=== PATIENT | female | born 1965 | race Caucasian/White ===

== ENCOUNTER 2017-07-29 23:09 | Inpatient (IN) ==
--- OUTSIDE RECORDS SUMMARY | 2017-07-29 23:33 | External Medical Summary ---
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 Active Problem Hyperlipidemia, unspecified E78.5 Active Problem Esophageal reflux 530.81 Active Problem Chronic obstructive pulmonary J44.9 Active disease, unspecified Problem Diarrhea 787.91 Active Problem Dysphagia, pharyngeal phase 787.23 Active Problem Tobacco use disorder 305.1 Active Problem Abdominal pain, unspecified site 789.00 Active Medications Medication Code System Code Instructions Start Date End Date Status Dosage Advair A [facility] [address] 230-21 MCG/ACT May 12, 2 puffs -00 Inhalation Twice a 2015 day Results No Known Results Summary Purpose eClinicalWorks Submission
--- OUTSIDE RECORDS SUMMARY | 2017-07-29 23:33 | External Medical Summary ---
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 Active Problem Tobacco use disorder 305.1 Active Problem Abdominal pain, unspecified site 789.00 Active Problem Esophageal reflux 530.81 Active Problem COPD 496 Active Problem Hormone replacement therapy V07.4 Active (postmenopausal) Problem Diarrhea 787.91 Active Problem Dysphagia, pharyngeal phase 787.23 Active Medications Medication Code System Code Instructions Start End Date Status [place] [address] 500-50 MCG/DOSE Jul 02, 1 puff 7-00 Inhalation Twice 2012 [place] [address] 325 MG Orally 1 to 2 6-60 every 6 hrs for tablets as pain needed Lyrica NDC [address]-418 150 MG Orally Dec 24, 1 capsule 6-41 Twice a day 2014 [place] [address] 108 (90 Base) February 18, 2 puffs as 1-85 MCG/ACT 2014 needed Inhalation every 4 [place] [address] 20 MG Orally Jul 28, 2 tablets 45 Once a day 2014 Procedures Procedure Coding System Code Date COMPLETE CBC W/AUTO DIFF WBC CPT-4 65077 Sep 13, 2015 COMPREHENSIVE METABOLIC PANEL CPT-4 81762 Sep 13, 2015 URINALYSIS, IN HOUSE CPT-4 42142 Sep 13, 2015 LIPID PANEL CPT-4 62994 Sep 13, 2015 SED RATE CPT-4 83329 Sep 13, 2015 TSH CPT-4 97041 Sep 13, 2015 Results Name Result Date Reference Range Unit Abnormality Flag In House Urinalysis, automated CBC With Platelet and Differential Summary Purpose eClinicalWorks Submission
--- OUTSIDE RECORDS SUMMARY | 2017-07-29 23:33 | External Medical Summary ---
:1965 Author Organization eClinicalWorks Care Team Providers Name Role Foreign Kilpatrick Provider Role Unavailable Allergies No Known Allergies Problems Problem Type Condition ICD-9 Code Onset Dates Condition Status Problem Diarrhea 787.91 Active Problem Dysphagia, pharyngeal phase 787.23 Active Problem Abdominal pain, unspecified site 789.00 Active Problem COPD 496 Active Problem Psychogenic pain, site 307.80 Active unspecified Problem COPD 496 Active Problem Hormone replacement therapy V07.4 Active (postmenopausal) Medications No Known Medications Results No Known Results Summary Purpose eClinicalWorks Submission
--- OUTSIDE RECORDS SUMMARY | 2017-07-29 23:34 | External Medical Summary ---
[...] Abdominal pain, unspecified site 789.00 Active Medications No Known Medications Results No Known Results Summary Purpose eClinicalWorks Submission
--- OUTSIDE RECORDS SUMMARY | 2017-07-29 23:34 | External Medical Summary ---
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
--- OUTSIDE RECORDS SUMMARY | 2017-07-29 23:34 | External Medical Summary ---
:1965 Author Organization eClinicalWorks Care Team Providers Name Role Foreign Kilpatrick Provider Role Unavailable Allergies, Adverse Reactions, Alerts Substance Reaction Event Type Demerol vomiting Drug Allergy Cipro anaphylaxis Drug Allergy Problems Problem Type Condition ICD-9 Code Onset Dates Condition Status Assessment COPD 496 Active Assessment Psychogenic pain, site 307.80 Active unspecified Problem Diarrhea 787.91 Active Problem Dysphagia, pharyngeal phase 787.23 Active Problem Abdominal pain, unspecified site 789.00 Active Problem COPD 496 Active Problem Psychogenic pain, site 307.80 Active unspecified Problem COPD 496 Active Problem Hormone replacement therapy V07.4 Active (postmenopausal) Medications Medication Code System Code Instructions Start End Date Status Dosage Date Lyrica [facility] [address] 150 MG Orally Dec 24, 1 capsule 6-41 Twice a day 2013 Advair Diskus [facility] [address] 500-50 MCG/DOSE Jul 02, 1 puff 7-00 Inhalation Twice 2012 [place] [address] 325 MG Orally 1 tablet as 6-60 every 6 hrs needed ProAir HFA [facility] [address]79[address] 108 (90 Base) February 18, 2 puffs as 1-85 MCG/ACT 2014 needed Inhalation every 4 hrs Procedures Procedure Coding System Code Date OFFICE VISIT, EST-LOW COMPLEXITY (15 MIN.) CPT-4 85157 Dec 16, 2014 Vital Signs Date/Time: Dec 16, 2014 Height N/A in Weight 104.8 lbs Temperature 97.6 F Blood Pressure Diastolic 70 mm Hg Blood Pressure Systolic 128 mm Hg Cardiac Monitoring Heart Rate 98 /min BMI 22.68 Index Respiratory Rate 18 /min Results No Known Results Summary Purpose eClinicalWorks Submission
--- OUTSIDE RECORDS SUMMARY | 2017-07-29 23:34 | External Medical Summary ---
:1965 Author Organization eClinicalWorks Care Team Providers Name Role Phone Shiv Childress Provider Role Unavailable Allergies, Adverse Reactions, Alerts Substance Reaction Event Type Demerol vomiting Drug Allergy Cipro anaphylaxis Drug Allergy Problems Problem Type Condition ICD-9 Code Onset Dates Condition Status Assessment Spasm of muscle 728.85 Active Problem COPD 496 Active Problem Psychogenic pain, site 307.80 Active unspecified Problem Tobacco use disorder 305.1 Active Problem Abdominal pain, unspecified site 789.00 Active Problem Esophageal reflux 530.81 Active Problem COPD 496 Active Problem Hormone replacement therapy V07.4 Active (postmenopausal) Problem Diarrhea 787.91 Active Problem Dysphagia, pharyngeal phase 787.23 Active Assessment Esophageal reflux 530.81 Active Assessment Pain in joint, pelvic region and 719.45 Active thigh Assessment Tobacco use disorder 305.1 Active Assessment Pain in joint, ankle and foot 719.47 Active Assessment Shortness of breath 786.05 Active Assessment Plantar fasciitis 728.71 Active Medications Medication Code System Code Instructions Start End Date Status Dosage Date Tylenol [facility] [address] 325 MG Orally 1 to 2 6-60 every 6 hrs [place] [address] 150 MG Orally Dec 24, 1 capsule 6-41 Twice a day [address] [facility] [address] 20 MG Orally Jul 28, 2 tablets 45 Once a day [address] [facility] 137[address]-558 500-50 MCG/DOSE Jul 02, 1 puff 7-00 Inhalation Twice [address] [facility] [address] 108 (90 Base) February 18, 2 puffs as 1-85 MCG/ACT 2014 needed Inhalation every 4 hrs Procedures Procedure Coding System Code Date OFFICE VISIT, EST-MOD. COMPLEXITY (25 MIN) CPT-4 61485 Jul 28, 2015 Vital Signs Date/Time: Jul 28, 2015 Height 57 in Weight 86.12 lbs Temperature 98.0 F Blood Pressure Diastolic 74 mm Hg Blood Pressure Systolic 110 mm Hg Cardiac Monitoring Heart Rate 74 /min BMI 18.63 Index Oximetry 97 % Respiratory Rate 16 /min Results No Known Results Summary Purpose eClinicalWorks Submission
--- OUTSIDE RECORDS SUMMARY | 2017-07-29 23:34 | External Medical Summary ---
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
--- OUTSIDE RECORDS SUMMARY | 2017-07-29 23:34 | External Medical Summary | CCD ---
:1965 Author Name SHREYAS PATTERSON Address [address] Unavailable [place], [place] [id number] Care Team Providers Name Role Phone ONUR HOLMAN Attending Physician Unavailable ONUR HOLMAN Er Physician 1 Unavailable Vital Signs Vital Sign Value Unit Date/Time Recent/Initial? Weight Measured 100 lbs 12/13/2016 23:12 Initial VS Height 54 in 12/13/2016 23:12 Initial VS BMI (Body Mass 24.11 kg/m^2 12/13/2016 23:12 Initial VS Index) BSA (Body Surface 1.31 m^2 12/13/2016 23:12 Initial VS Area) Allergies Allergy Code Allergy Type Reaction Status CIPRO 482530 Drug allergy Active DEMEROL 309926 Drug allergy Active Procedures Procedure Code Procedure Type Date CHEST [id number] 12/13/2016 History of Immunizations Unknown or Not Available. Problems Unknown or Not Available. Results CARDIAC PANEL - Collect Date/Time: 12/13/2016 21:40 Test Name Code Test Result Test Units Test Ref Range CKMB 0.4 ng/mL L=0.0 H=3.6 CPK 49 U/L L=26 H=308 CKMB% 0.8 % L=0.0 H=4.0 TROPONIN I <0.02 ng/mL L=0.00 H=0.05 COMP METABOLIC - Collect Date/Time: 12/13/2016 21:40 Test Name Code Test Result Test Units Test Ref Range GLUCOSE 106 mg/dL L=70 H=110 BUN 7 mg/dL L=7 H=18 CREATININE 0.71 mg/dL L=0.60 H=1.30 AGE 50 YEARS GFR 86.4 L=60.0 H=120 SODIUM 138 mmol/L L=136 H=145 POTASSIUM 3.4 mmol/L L=3.5 H=5.1 CHLORIDE 103 mmol/L L=98 H=107 CO2 25 mmol/L L=21 H=32 CALCIUM 9.1 mg/dL L=8.5 H=10.1 AST 17 U/L L=15 H=37 ALT 19 U/L L=12 H=78 ALKALINE PHOS 114 U/L L=50 H=136 TOTAL PROTEIN 8.5 g/dL L=6.4 H=8.2 ALBUMIN 4.0 g/dL L=3.4 H=5.0 TOTAL BILI 0.20 mg/dL L=0.00 H=1.00 CBC W/ DIFF - Collect Date/Time: 12/13/2016 21:40 Test Name Code Test Result Test Units Test Ref Range WBC 6.6 x10^3 L=4.8 H=10.8 RBC 4.42 x10^6 L=4.20 H=5.40 HEMOGLOBIN 12.8 g/dL L=12.0 H=16.0 HEMATOCRIT 38.0 % L=37.0 H=47.0 MCV 86 fL L=80 H=100 MCH 29.0 pg L=27.0 H=33.0 MCHC 33.7 g/dL L=33.0 H=37.0 RDW 14.2 % L=11.5 H=14.5 PLATELETS 378 x10^3 L=150 H=450 MPV 7.0 fL L=7.8 H=11.0 NEUTROPHILS 37.7 % L=40.0 H=80.0 LYMPHOCYTES 52.2 % L=20.0 H=45.0 MONOCYTES 8.5 % L=0.0 H=10.0 EOSINOPHILS 0.7 % L=0.0 H=5.0 BASOPHILS 0.9 % L=0.0 H=2.0 REFLEX MAN DIFF NO N/A D-DIMER, QUANTITATIVE - Collect Date/Time: 12/13/2016 21:40 Test Name Code Test Result Test Units Test Ref Range D-DIMER, QUANT 1560 ng/mL L=0 H=400 Active Medications Unknown or Not Available. Medications Administered During Visit Unknown or Not Available. Encounters Unknown or Not Available. Social History Smoking Status Code Start Date End Date Current every day [id number] smoker Patient Decision Aids Unknown or Not Available. Discharge Instructions You were admitted to [facility] on 12/13/2016 21:24 You had the following tests done: CARDIAC PANEL CBC W/ DIFF COMP METABOLIC D-DIMER, QUANTITATIVE You were discharged from [facility] on 12/14/2016 00:15 Should you have any questions prior to discharge, please contact a member of your healthcare team. If you have left the hospital and have any questions, please contact your primary care physician. Chief Complaint and Reason For Visit Chief Complaint Date of Onset Pain in the chest 12/13/2016 Function Status Unknown or Not Available. Plan of Care Unknown or Not Available. Referral/Transition of Care Unknown or Not Available.
--- OUTSIDE RECORDS SUMMARY | 2017-07-29 23:34 | External Medical Summary ---
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 Active Problem Tobacco use disorder 305.1 Active Problem Abdominal pain, unspecified site 789.00 Active Problem Esophageal reflux 530.81 Active Problem COPD 496 Active Problem Hormone replacement therapy V07.4 Active (postmenopausal) Problem Diarrhea 787.91 Active Problem Dysphagia, pharyngeal phase 787.23 Active Assessment Fibromyalgia M79.7 Active Assessment Mixed hyperlipidemia E78.2 Active Assessment Diarrhea, unspecified R19.7 Active Assessment Atherosclerosis of [place] arteries I70.213 Active of extremities with intermittent claudication, bilateral legs Assessment Gastro-esophageal reflux disease K21.9 Active without esophagitis Medications Medication Code System Code Instructions Start End Date Status Dosage Date Lyrica [facility] [address] 150 MG Orally Dec 24, 1 capsule 6-41 Twice a day 2013 Prilosec OTC [facility] [address]69[address]-393 20 MG Orally Jul 16, 2 tablets 45 Once a day 2014 ProAir HFA [facility] 23[address]-035 108 (90 Base) February 18, 2 puffs as 1-85 MCG/ACT 2014 needed Inhalation every 4 hrs Advair Diskus [facility] 18[address] 500-50 MCG/DOSE Jul 02, 1 puff 7-00 Inhalation Twice 2012 [place] [address] 325 MG Orally 1 to 2 6-60 every 6 hrs for tablets as pain needed Procedures Procedure Coding System Code Date OFFICE VISIT, EST-MOD. COMPLEXITY (25 MIN) CPT-4 49316 Sep 16, 2015 Vital Signs Date/Time: Sep 16, 2015 Height 57 in Weight 100.0 lbs Temperature 97.9 F Blood Pressure Diastolic 82 mm Hg Blood Pressure Systolic 136 mm Hg Cardiac Monitoring Heart Rate 82 /min BMI 21.64 Index Oximetry 98 % Respiratory Rate 16 /min Results No Known Results Summary Purpose eClinicalWorks Submission
[2017-07-29 23:55] VITALS: BMI 16.2
[2017-07-30] MEDS: SALINE FLUSH 10ml SYRINGE IV PRN ×2 (00:15→07:34)
[2017-07-30] MEDS ORDERED: MORPHINE SULFATE 2 MG SYRINGE IVP PRN (01:40)
[2017-07-30] MEDS ORDERED: ACETAMINOPHEN 325 MG TABLET PO PRN ×2 (01:45→15:32)
[2017-07-30] MEDS: HEPARIN 1,000unit/ml INJECTION 10ml IV ONE ×2 (07:03→07:37)
[2017-07-30] MEDS: HEPARIN DRIP 20,000 UNIT/500 ML BAG IV SCH ×2 (07:05→07:34)
--- NOTE | 2017-07-30 07:22 | Pharmacy Consult ---
Pharmacy Consult-Heparin - Laboratory Information Heparin Plt Count 332 T/MM3 (130-400) D 07/30/17 05:53 APTT 30.7 SEC (24-36) 07/30/17 05:53 - Consult Information HEPARIN CONSULT (Initial): CARDIAC DOSING Reason: HIGH TROPONIN Baseline PTT = 30.7 Sec. Baseline platelet count = 332 T/mm3. PTT Target Range = 50-75 Will give Heparin Bolus of 2600units, start Heparin Drip at 500units/hr (12.5ml/ hr). Heparin 20,000 units in D5W 500ml. We will continue to monitor and make adjustments accordingly. Thank you.
[2017-07-30] MEDS ORDERED: PNEUMOCOCCAL 13 VACCINE 0.5ml INJECTION IM ONE (09:56)
--- NOTE | 2017-07-30 10:46 | Cardiology History & Physical ---
History of Present Illness Chief complaint: chest pain HPI: Allegra is a 51 year old female who is well known to Dr. Cooley's practice with a history of chest pain and a significant family history of CAD. She began having chest and left arm pain while watching TV yesterday afternoon. When the pain did not resolve she had her father take her to the ED in [place] approximately 5 hours after onset. Troponin was elevated to 0.1 and she was transferred [place] [facility] [place] to rule out [place] under the care of Dr. Cooley. She was started on Heparin infusion and her troponin has since elevated to 0.281 and then to 0.404. She is examined in her room on the Surgical unit. Her father is present. She reports illness the majority of the month of June with chills, cough, sore throat, nausea and vomiting, bloody stools X2 for which she saw . She was seen in the ED on 07/13/17 with similar chest pain and was sent home. Review of Systems - Constitutional Constitutional: Present: as per HPI - EENMT Eyes: Absent: change in vision Balance: Absent: vertigo - Cardiovascular Cardiovascular: Present: chest pain, dyspnea on exertion. Absent: palpitations , syncope Rhythm: Present: abnormal rhythm Vascular: Absent: pedal edema - Respiratory Respiratory: Present: cough, dyspnea, dyspnea on exertion - Gastrointestinal Gastrointestinal: Present: as per HPI. Absent: abdominal pain, diarrhea - Genitourinary Genitourinary: Absent: dysuria - Integumentary/Breasts Integumentary: Absent: rash - Neurological Neurological: Absent: dizziness - Endocrine Endocrine: Present: palpitations [facility] Patient Stated Medical History Migraine Yes Syncope Yes Other HEENT Yes: wears glasses Angina Yes Other Cardiology Yes: Palpitations Bronchitis Yes: Chronic Chronic Obstructive Pulmonary Yes Disease (COPD) Gastroesophageal Reflux Yes Disease Other GI Yes: blood in stool recently Hx Urinary Tract Infection Yes Osteoarthritis Yes Depression Yes: "from time to time" Post Menopausal Yes Surgical History: Appendectomy. Cholecystectomy. right wrist fracture repair Family History: Mother - CAD, CABG, DM Father - CAD - Social History Smoking status: Current every day smoker Substance use type: does not use Alcohol intake frequency: holidays/special occasions only Housing: house Household members: other (father) Current occupational status: unemployed Current residence: Apartment/Private Home Medications Home Medications Medication Instructions Recorded Confirmed Type Acetaminophen [Acetaminophen Extra 2 - 3 tab PO PRN 06/28/17 07/30/17 History Strength] Fluticasone/Salmeterol [Advair Hfa 1 puff INH PRN 06/28/17 07/30/17 History 230-21 Mcg Inhaler] Pregabalin Cap [Lyrica] 150 mg PO BID 06/28/17 07/30/17 History Ranitidine [Zantac] 150 mg PO BID PRN MDD 300 mg 07/30/17 07/30/17 History Tramadol HCl [Ultram] 50 mg PO Q8H PRN 07/30/17 07/30/17 History Allergies Allergy/AdvReac Type Severity Reaction Status Date / Time ciprofloxacin Allergy Severe NERVOUSNESS Verified 07/30/17 00:15 meperidine HCl AdvReac Severe NAUSEA & Uncoded 07/30/17 00:15 VOMITING Exam Vital signs: Temperature 97.8 F 07/30/17 07:43 Pulse Rate 60 07/30/17 09:11 Respiratory Rate 16 07/29/17 23:35 Blood Pressure 122/59 07/30/17 07:43 Pulse Oximetry 97 07/30/17 07:43 - Constitutional no acute distress, well nourished, well developed, thin, cooperative - Routine HEENT Exam Head: Present: normocephalic ENT: Present: mucous membranes moist - Routine Neck Exam Absent: JVD, carotid bruit - Routine Chest/Breast/Axilla Exam Chest wall: Present: tenderness - Routine Respiratory Exam Present: dyspnea, diminished air movement. Absent: CTA bilaterally - Routine Cardiovascular Exam Present: RRR, no murmur. Absent: JVD - Routine Abdominal Exam Present: soft, normoactive bowel sounds - Routine Extremities Exam Present: no edema - Routine Skin Exam Present: intact, dry, warm - Routine Neurological Exam Present: alert, oriented X3 - Routine Psychiatric Exam Present: normal affect, normal thought process Results 07/31/17 04:35 07/31/17 04:35 Cardiac Enzymes 07/30/17 07/30/17 Range/Units 01:02 05:53 AST 225 H (14-36) U/L Troponin I 0.281 H 0.404 H (0-0.12) ng/ml Coagulation 07/30/17 Range/Units 05:53 APTT 30.7 (24-36) SEC CBC 07/30/17 Range/Units 05:53 WBC 5.6 (4.5-11.0) T/MM3 RBC 3.93 L (4.00-5.20) M/MM3 Hgb 11.4 L (12-16) GM/DL Hct 35.4 L (36-46) % Plt Count 332 D (130-400) T/MM3 Neut # 1.9 (1.8-7.7) T/MM3 Lymph # 3.4 (1-4.8) T/MM3 Rice # 0.3 (0-0.8) T/MM3 Eos # 0.0 (0-0.5) T/MM3 Baso # 0.1 (0-0.2) T/MM3 Comprehensive Metabolic Panel 07/30/17 Range/Units 05:53 Sodium 143 (134-144) MEQ/L Potassium 4.3 (3.6-5) MEQ/L Chloride 104 (98-107) MEQ/L Carbon Dioxide 29 (22-30) MEQ/L BUN 12.0 (7-17) MG/DL Creatinine 0.7 (0.7-1.2) MG/DL Glucose 98 (65-110) MG/DL Calcium 9.1 (8.4-10.2) MG/DL AST 225 H (14-36) U/L ALT 132 H (9-52) U/L Alkaline Phosphatase 132 H (38-126) U/L Total Protein 7.9 (6.3-8.2) G/DL Albumin 4.3 (3.5-5.0) G/DL Intake and Output 07/29/17 07/30/17 07/30/17 22:59 06:59 14:59 Intake Total 300 / 300 300 / 300 Output Total 300 / 300 150 / 150 Balance 0 / 0 150 / 150 Intake: Oral 300 / 300 300 / 300 Output: Urine 300 / 300 150 / 150 Other: Urine Appearance Clear Clear Urine Color Yellow Yellow Urine Odor Normal # Voids 1 Weight 94 lb 12.78 oz 94 lb 12.78 oz Patient Weight 07/31/17 06:59 Weight 94 lb 12.78 oz Laboratory Results - last 48 hr 07/30/17 07/30/17 07/30/17 01:02 05:53 05:53 WBC 5.6 RBC 3.93 L Hgb 11.4 L Hct 35.4 L MCV 90.1 MCH 29.0 MCHC 32.2 RDW Std Deviation 51.9 H Plt Count 332 D MPV 9.3 L Immature Gran % (Auto) 0.0 Neut % (Auto) 33.3 Lymph % (Auto) 59.8 H Rice % (Auto) 5.5 Eos % (Auto) 0.5 Baso % (Auto) 0.9 Neut # 1.9 Lymph # 3.4 Rice # 0.3 Eos # 0.0 Baso # 0.1 Abs Immat Gran (auto) 0.00 APTT Turbidity < 20 Sodium 143 Potassium 4.3 Chloride 104 Carbon Dioxide 29 Anion Gap 10 BUN 12.0 Creatinine 0.7 GFR Calculation 88 BUN/Creatinine Ratio 17 Glucose 98 Calculated Osmolality 275 Calcium 9.1 Total Bilirubin 0.40 Icterus Index < 2 AST 225 H ALT 132 H Alkaline Phosphatase 132 H Troponin I 0.281 H 0.404 H Total Protein 7.9 Albumin 4.3 Globulin 3.6 Albumin/Globulin Ratio 1.2 Specimen Hemolysis < 15 < 15 07/30/17 05:53 WBC RBC Hgb Hct MCV MCH MCHC RDW Std Deviation Plt Count MPV Immature Gran % (Auto) Neut % (Auto) Lymph % (Auto) Rice % (Auto) Eos % (Auto) Baso % (Auto) Neut # Lymph # Rice # Eos # Baso # Abs Immat Gran (auto) APTT 30.7 Turbidity Sodium Potassium Chloride Carbon Dioxide Anion Gap BUN Creatinine GFR Calculation BUN/Creatinine Ratio Glucose Calculated Osmolality Calcium Total Bilirubin Icterus Index AST ALT Alkaline Phosphatase Troponin I Total Protein Albumin Globulin Albumin/Globulin Ratio Specimen Hemolysis - Imaging and Cardiology Echo: report reviewed EKG results: image reviewed Imaging & Cardiology Narrative: Date of Exam: 07/30/17 Type of Exam(s): US echo doppler complete DATE OF PROCEDURE July 30, 2017 This is a two-dimensional echo with spectral Doppler, color-flow and M-mode. It was obtained in a patient with non-STEMI.. Left atrial dimension is normal. Left ventricle end-diastolic dimension is normal. Left ventricle wall thickness is normal. LV systolic function is normal with ejection fraction of 60%. Right atrium is normal. Right ventricle is normal. Aortic root dimension is normal. Mitral, aortic, tricuspid, and pulmonary valves are morphologically normal with trace of mitral regurgitation, trace of tricuspid regurgitation, trace of pulmonary insufficiency and normal estimated pulmonary artery systolic pressure of 17. There is no pericardial effusion. IMPRESSION 1. Normal LV systolic function with ejection fraction of 60%. 2. Trace of mitral regurgitation. 3. Trace of tricuspid regurgitation with normal estimated pulmonary artery systolic pressure of 17. 4. Trace of pulmonary insufficiency. EKG interpretations - EKG EKG results cardiology: sinus rhythm EKG shows: bradycardia (no ischemic changes) Hospital Course This is a general summary of the patient's hospital course. For more details refer to the complete medical record. Time spent with patient: 25 - 35 minutes DVT Prophylaxis: Heparin drip Assessment and Plan - Attestation Attestation Narrative: 08/03/17 13:56 Recommendation After examining the patient I agree with the above assessment. I am involved in the formulation of the patient's plan of care. - Assessment and Plan (1) NSTEMI (non-ST elevated myocardial infarction) Status: Acute Troponin 1)0.100, 2) 0.281, 3) 0.404 EKG: Sinus bradycardia, no ischemic ST-T changes Plan left heart cath this afternoon Start Aspirin, BB and ACEI Lipid panel in AM (2) Precordial chest pain Status: Acute Sternal, reproducible chest pain. Sepsis Assessment - Evaluation Sepsis screening result: No Definite Risk
[2017-07-30] MEDS: NS 1,000 ML IV SCH (13:03)
[2017-07-30] MEDS ORDERED: LIDOCAINE 1% (10mg/ml) 30ml SDV INJ ONE (13:08)
[2017-07-30] MEDS ORDERED: HEPARIN 1,000 UNITS/500 ML PREMIX (*CVL ONLY*) IV ONE (13:08)
[2017-07-30] MEDS ORDERED: MIDAZOLAM 2mg/2ml INJECTION ONE (14:49)
[2017-07-30] MEDS ORDERED: FentaNYL 100 MCG/2 ML INJECTION ONE (14:49)
--- NOTE | 2017-07-30 15:17 | Cardiac Catheterization Report ---
DATE OF PROCEDURE July 30, 2017 INDICATION This is a pleasant 51-year-old lady with no known coronary artery disease who was admitted with chest pain and elevated troponin and was referred for further evaluation by cardiac catheterization and possible intervention. INFORMED CONSENT Informed consent was obtained after explaining the procedure and the potential risks to the patient who agreed to proceed with the procedure. PROCEDURE 1. Left heart catheterization. 2. Coronary angiography. 3. Left ventriculography. 4. Right femoral angiography to visualize the vessel for closure device. 5. Successful Mynx deployment for hemostasis. TECHNIQUE She was prepped and draped in the usual sterile techniques. Conscious sedation was performed using Versed and fentanyl. 1% lidocaine was used for local anesthesia. Using modified Seldinger technique, arterial access was obtained into the right femoral artery with placement of a 6-Syriac arterial sheath. LEFT VENTRICULOGRAPHY Left ventriculography in single-plane REYES shallow projection showed normal LV systolic function with ejection fraction of about 65% with no mitral regurgitation or gradient across the aortic valve. LVEDP was about 18. CORONARY ANGIOGRAPHY Left main was free of significant lesions. Left anterior descending artery had minor irregularities with some disease of up to about 30%. Diagonals were free of significant lesions. The left circumflex artery had minor irregularities with no significant lesions. Right coronary artery had minor irregularities and this was a small caliber vessel. Right femoral angiography showed patent common femoral, proximal SFA and profunda and therefore Mynx was used for hemostasis. IMPRESSION 1. Normal LV systolic function with ejection fraction of 65%. 2. Mild one-vessel coronary artery disease involving LAD. 3. Successful Mynx deployment for hemostasis. PLAN Medical management. ESTER
[2017-07-30] MEDS ORDERED: BISACODYL 10 MG SUPPOSITORY RECTALLY PRN (15:32)
[2017-07-30] MEDS ORDERED: NITROGLYCERIN 0.4 MG SUBLINGUAL TABLET SL PRN (15:32)
[2017-07-30] MEDS ORDERED: PROMETHAZINE 25 MG INJECTION IVP PRN (15:32)
[2017-07-30] MEDS ORDERED: MORPHINE SULFATE 4 MG SYRINGE IVP PRN ×2 (15:32)
[2017-07-30] MEDS ORDERED: LORazepam 0.5 MG TABLET PO PRN (15:32)
[2017-07-30] MEDS ORDERED: Bisacodyl EC TAB 5 MG TABLET PO PRN (15:32)
[2017-07-30] MEDS ORDERED: METOCLOPRAMIDE 10mg/2ml INJECTION IVP PRN (15:32)
[2017-07-30] MEDS ORDERED: ATROPINE 1 MG/ML INJECTION IVP PRN (15:32)
[2017-07-30] MEDS ORDERED: ONDANSETRON 4 MG/2 ML INJECTION IVP PRN (15:32)
[2017-07-30] MEDS ORDERED: MAG-AL + SIM ORAL LIQUID 30ml PO PRN (15:32)
--- NOTE | 2017-07-30 16:20 | Echocardiogram ---
DATE OF PROCEDURE July 30, 2017 This is a two-dimensional echo with spectral Doppler, color-flow and M-mode. It was obtained in a patient with non-STEMI.. Left atrial dimension is normal. Left ventricle end-diastolic dimension is normal. Left ventricle wall thickness is normal. LV systolic function is normal with ejection fraction of 60%. Right atrium is normal. Right ventricle is normal. Aortic root dimension is normal. Mitral, aortic, tricuspid, and pulmonary valves are morphologically normal with trace of mitral regurgitation, trace of tricuspid regurgitation, trace of pulmonary insufficiency and normal estimated pulmonary artery systolic pressure of 17. There is no pericardial effusion. IMPRESSION 1. Normal LV systolic function with ejection fraction of 60%. 2. Trace of mitral regurgitation. 3. Trace of tricuspid regurgitation with normal estimated pulmonary artery systolic pressure of 17. 4. Trace of pulmonary insufficiency. MTDD
[2017-07-30] MEDS: HYDROCODONE/APAP 7.5 MG/325 MG TABLET PO PRN (22:00)
[2017-07-31] MEDS ORDERED: TRAMADOL 50 MG TABLET PO PRN (00:16)
[2017-07-31] MEDS ORDERED: RANITIDINE 150 MG TABLET PO PRN (00:16)
[2017-07-31] MEDS ORDERED: ACETAMINOPHEN 500 MG TABLET PO PRN (00:18)
[2017-07-31] MEDS: PREGABALIN 150 MG CAPSULE PO SCH ×2 (00:22→09:09)
[2017-07-31] MEDS: NS 1,000 ML IV SCH ×2 (02:52→15:45)
[2017-07-31] MEDS: HYDROCODONE/APAP 7.5 MG/325 MG TABLET PO PRN ×2 (04:16→13:33)
[2017-07-31] MEDS ORDERED: NICOTINE 21 MG PATCH TD SCH (09:00)
[2017-07-31] MEDS ORDERED: ASPIRIN *EC* 81 MG TABLET PO SCH (09:15)
[2017-07-31] MEDS ORDERED: CARVEDILOL 3.125 MG TABLET PO SCH (09:15)
[2017-07-31] MEDS ORDERED: LISINOPRIL 2.5 MG TABLET PO SCH (09:15)
--- NOTE | 2017-07-31 10:21 | Discharge Summary ---
<Marya Nolasco M - Last Filed: 07/31/17 14:37> Discharge Information Date of admission: 07/30/17 10:50 Anticipated date of discharge: 07/31/17 Attending Physician: Nomi Cooley MD Primary care physician: Shiv Childress DO Consults: 07/30/17 Pharmacy Consult [CONS] Routine Pharmacy Consult: Heparin 07/30/17 00:02 Dietary Consult [CONS] Routine Comment: Reason For Exam: 07/31/17 09:09 Cardiac Rehab [Outpt Cardiac Rehab Consult] [CONS] Routine - Discharge Diagnosis (1) NSTEMI (non-ST elevated myocardial infarction) Status: Acute (2) Precordial chest pain Status: Acute - Procedures Procedures: Date of Exam: 07/30/17 Type of Exam(s): CA heart cath LT DATE OF PROCEDURE July 30, 2017 INDICATION This is a pleasant 51-year-old lady with no known coronary artery disease who was admitted with chest pain and elevated troponin and was referred for further evaluation by cardiac catheterization and possible intervention. INFORMED CONSENT Informed consent was obtained after explaining the procedure and the potential risks to the patient who agreed to proceed with the procedure. PROCEDURE 1. Left heart catheterization. 2. Coronary angiography. 3. Left ventriculography. 4. Right femoral angiography to visualize the vessel for closure device. 5. Successful Mynx deployment for hemostasis. TECHNIQUE She was prepped and draped in the usual sterile techniques. Conscious sedation was performed using Versed and fentanyl. 1% lidocaine was used for local anesthesia. Using modified Seldinger technique, arterial access was obtained into the right femoral artery with placement of a 6-Kyrgyz arterial sheath. LEFT VENTRICULOGRAPHY Left ventriculography in single-plane REYES shallow projection showed normal LV systolic function with ejection fraction of about 65% with no mitral regurgitation or gradient across the aortic valve. LVEDP was about 18. CORONARY ANGIOGRAPHY Left main was free of significant lesions. Left anterior descending artery had minor irregularities with some disease of up to about 30%. Diagonals were free of significant lesions. The left circumflex artery had minor irregularities with no significant lesions. Right coronary artery had minor irregularities and this was a small caliber vessel. Right femoral angiography showed patent common femoral, proximal SFA and profunda and therefore Mynx was used for hemostasis. IMPRESSION 1. Normal LV systolic function with ejection fraction of 65%. 2. Mild one-vessel coronary artery disease involving LAD. 3. Successful Mynx deployment for hemostasis. PLAN Medical management. - Laboratory Labs: 07/31/17 04:35 07/31/17 04:35 - Radiology Radiology: Date of Exam: 07/30/17 Type of Exam(s): US echo doppler complete DATE OF PROCEDURE July 30, 2017 This is a two-dimensional echo with spectral Doppler, color-flow and M-mode. It was obtained in a patient with non-STEMI.. Left atrial dimension is normal. Left ventricle end-diastolic dimension is normal. Left ventricle wall thickness is normal. LV systolic function is normal with ejection fraction of 60%. Right atrium is normal. Right ventricle is normal. Aortic root dimension is normal. Mitral, aortic, tricuspid, and pulmonary valves are morphologically normal with trace of mitral regurgitation, trace of tricuspid regurgitation, trace of pulmonary insufficiency and normal estimated pulmonary artery systolic pressure of 17. There is no pericardial effusion. IMPRESSION 1. Normal LV systolic function with ejection fraction of 60%. 2. Trace of mitral regurgitation. 3. Trace of tricuspid regurgitation with normal estimated pulmonary artery systolic pressure of 17. 4. Trace of pulmonary insufficiency. History of Present Illness HPI: Allegra is a 51 year old female who is well known to Dr. Cooley's practice with a history of chest pain and a significant family history of CAD. She began having chest and left arm pain while watching TV yesterday afternoon. When the pain did not resolve she had her father take her to the ED in [place] approximately 5 hours after onset. Troponin was elevated to 0.1 and she was transferred [place] [facility] [place] to rule out NH under the care of Dr. Cooley. She was started on Heparin infusion and her troponin has since elevated to 0.281 and then to 0.404. She is examined in her room on the Surgical unit. Her father is present. She reports illness the majority of the month of June with chills, cough, sore throat, nausea and vomiting, bloody stools X2 for which she saw . She was seen in the ED on 07/13/17 with similar chest pain and was sent home. Hospital Course This is a general summary of the patient's hospital course. For more details refer to the complete medical record. Hospital course: Admitted to observation status for NSTEMI: Troponin 1)0.100, 2) 0.281, 3) 0.404 EKG: Sinus bradycardia, no ischemic ST-T changes Left heart cath on 07/30/17, see report, plan medical management Start Aspirin, BB and ACEI Lipid panel Time spent with patient: 25 - 35 minutes Exam Vital signs: Temperature 98.3 F 07/31/17 07:38 Pulse Rate 65 07/31/17 08:00 Respiratory Rate 22 07/31/17 07:38 Blood Pressure 109/55 07/31/17 07:38 Pulse Oximetry 95 07/31/17 07:38 - Constitutional no acute distress, thin, cooperative - Routine HEENT Exam Head: Present: normocephalic ENT: Present: mucous membranes moist - Routine Neck Exam Absent: JVD, carotid bruit - Routine Chest/Breast/Axilla Exam Chest wall: Absent: tenderness - Routine Respiratory Exam Present: CTA bilaterally, diminished air movement. Absent: rales, wheezes - Routine Cardiovascular Exam Present: no murmur. Absent: JVD - Routine Abdominal Exam Present: soft, normoactive bowel sounds - Routine Extremities Exam Present: no edema - Routine Skin Exam Present: intact, dry, warm - Routine Neurological Exam Present: alert, oriented X3 - Routine Psychiatric Exam Present: normal affect, normal thought process Results 07/31/17 04:35 07/31/17 04:35 Cardiac Enzymes 07/31/17 Range/Units 04:35 Troponin I 0.192 H (0-0.12) ng/ml Coagulation 07/30/17 Range/Units 15:54 APTT 30.6 (24-36) SEC CBC 07/31/17 Range/Units 04:35 WBC 5.3 (4.5-11.0) T/MM3 RBC 3.67 L (4.00-5.20) M/MM3 Hgb 10.7 L (12-16) GM/DL Hct 33.1 L (36-46) % Plt Count 283 (130-400) T/MM3 Neut # 1.9 (1.8-7.7) T/MM3 Lymph # 3.1 (1-4.8) T/MM3 Maury # 0.3 (0-0.8) T/MM3 Eos # 0.0 (0-0.5) T/MM3 Baso # 0.0 (0-0.2) T/MM3 Comprehensive Metabolic Panel 07/31/17 Range/Units 04:35 Sodium 145 H (134-144) MEQ/L Potassium 4.3 (3.6-5) MEQ/L Chloride 107 (98-107) MEQ/L Carbon Dioxide 28 (22-30) MEQ/L BUN 6.0 L D (7-17) MG/DL Creatinine 0.7 (0.7-1.2) MG/DL Glucose 97 (65-110) MG/DL Calcium 8.8 (8.4-10.2) MG/DL Intake and Output 07/30/17 07/31/17 07/31/17 22:59 06:59 14:59 Intake Total 1404.583 / 1404.583 580 / 580 Output Total 950 / 950 1000 / 1000 Balance 454.583 / 454.583 -420 / -420 Intake: IV 814.583 / 814.583 280 / 280 HEPARIN DRIP 20,000 unit 94.583 / 94.583 In 500 ml @ 500 UNIT/HR 12.5 mls/hr IV .Q24H CHAN Rx#:[id number] Normal Saline 1,000 ml @ 720 / 720 280 / 280 75 mls/hr IV .[id number] CHAN Rx#:[id number] Oral 590 / 590 300 / 300 Output: Urine 950 / 950 1000 / 1000 Other: Urine Appearance Clear Clear Urine Color Pale Pale Urine Odor Normal # Voids 2 Weight 95 lb 14.417 oz Patient Weight 08/01/17 06:59 Weight 95 lb 14.417 oz Discharge Plan - Med Rec/Dispo Referrals/Follow Up: Shiv Childress DO [Family Provider] - 1 Week (Follow-up with Dr. Childress on at 3:30pm) Nomi Cooley MD [Physician] - 08/21/17 9:30 am Candice Instructions: [facility] [place] Prescriptions: New Aspirin *EC* [Ecotrin] 81 mg PO DAILY #30 tab Carvedilol [Coreg] 3.125 mg PO BIDWM #60 tab Lisinopril [Prinivil] 2.5 mg PO DAILY #30 tab Lovastatin [Mevacor] 20 mg PO HS #30 tab Continue Fluticasone/Salmeterol [Advair Hfa 230-21 Mcg Inhaler] 1 puff INH PRN Acetaminophen [Acetaminophen Extra Strength] 2 - 3 tab PO PRN Tramadol HCl [Ultram] 50 mg PO Q8H PRN PRN Reason: Pain Ranitidine [Zantac] 150 mg PO BID PRN MDD 300 mg PRN Reason: Reflux Pregabalin Cap [Lyrica] 150 mg PO BID - Disposition 01 Discharged Home, Self-Care <Nomi Cooley - Last Filed: 08/03/17 14:02> Discharge Information Date of admission: 07/30/17 10:50 Attending Physician: Nomi Cooley MD Primary care physician: Shiv Childress DO Consults: 07/30/17 Pharmacy Consult [CONS] Routine Pharmacy Consult: Heparin 07/30/17 00:02 Dietary Consult [CONS] Routine Comment: Reason For Exam: 07/31/17 09:09 Cardiac Rehab [Outpt Cardiac Rehab Consult] [CONS] Routine - Discharge Diagnosis (1) NSTEMI (non-ST elevated myocardial infarction) Status: Acute (2) Precordial chest pain Status: Acute - Laboratory Labs: 07/31/17 04:35 07/31/17 04:35 Hospital Course This is a general summary of the patient's hospital course. For more details refer to the complete medical record. Exam Vital signs: Temperature 98.2 F 07/31/17 15:00 Pulse Rate 64 07/31/17 15:00 Respiratory Rate 18 07/31/17 15:00 Blood Pressure 94/47 07/31/17 15:00 Pulse Oximetry 94 07/31/17 15:00 Results 07/31/17 04:35 07/31/17 04:35 Discharge Plan - Med Rec/Dispo - Attestation Attestation Narrative: 08/03/17 14:02 Recommendation After examining the patient I agree with the above assessment. I am involved in the formulation of the patient's plan of care.
[2017-07-31 11:44] VITALS: O2SAT 94
[2017-07-31 15:26] VITALS: BP 94/47; PULSE 64; RESP 18; TEMP 98.2
[2017-07-31] MEDS ORDERED: LOVASTATIN 20 MG TABLET PO SCH (21:00)
[2017-08-01] MEDS ORDERED: NICOTINE PATCH REMOVAL TD SCH (09:00)
== END 2017-07-31 16:18 | disposition home or self-care (01) | DRG 282 ==
LOC: SRG
PROVIDERS: ADMIT Internal Medicine Cardiovascular Disease; ATTEND Internal Medicine Cardiovascular Disease